=== PATIENT | male | born 1995 | race Caucasian/White ===

== ENCOUNTER 2020-09-19 13:23 | Inpatient (IN) | payer MEDICARE ==
[~2020-09-19] VITALS: Ht 177.8 cm; Wt 99.1 kg
--- NOTE | 2020-09-19 14:00 | NUR ---
DEVELOPMENTAL SERVICES WORKER ATTEMPTED TO DRAW BLOOD AND RN ATTEMPTED TO START IV WITHOUT SUCCESS. PATIENT IS VERY UNCOOPERATIVE AND BECAME COMBATIVE DESPITE EXPLANATIONS AND HOLDING HELP. SARS ANTIGEN SWAB OBTAINED FROM ONLY LEFT NARE DUE TO COMBATIVENESS. SPENCER CARDONA, NOTIFIED. ORDERS CANCELLED.
--- NOTE | 2020-09-19 14:30 | NUR ---
PATIENT HAS 02 OFF. SPO2 AT 88%. O2 REPLACED AND EXPLAINED TO PATIENT.
--- NOTE | 2020-09-19 14:45 | NUR ---
COVID ANTIGEN POSITIVE. GRANDFATHER/GUARDIAN INFORMED AND REMOVED FROM ROOM.
[2020-09-19 15:17] LABS: SARS-CoV-2 ANTIGEN POSITIVE- SARS-COV-2 (NEGATIVE)
--- NOTE | 2020-09-19 15:30 | NUR ---
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 URINAL GIVEN. PATIENT AGAIN HAS REMOVED O2 CANNULA AND PULLED SPO2 SENSOR OFF FINGER. REMINDED TO KEEP BOTH ON. SPO2 88 WITHOUT O2.
[2020-09-19 21:43] VITALS: BP 131/84
[2020-09-19 23:56] LABS: BASOPHILS 0.8 % (0-2); EOSINOPHILS 0.1 % (0-7); HEMATOCRIT 46.4 % (42.0-54.0); HEMOGLOBIN 16.3 g/dL (13.5-17.5); LYMPHOCYTES 17.1 % (15-50); MCH 29.8 pg (26.0-34.0); MCHC 35.1 g/dL (31.0-37.0); MCV 84.9 fL (80.0-100.0); MEAN PLATELET VOLUME 9.5 fL (7.4-10.4); MONOCYTES 17.8 % (2-11); NEUTROPHILS 64.2 % (40-80); PLATELET COUNT 163 10x3/uL (130-400); RBC 5.46 10x6/uL (4.20-6.10); RDW 13.5 % (11.5-14.5); WBC 4.8 10x3/uL (4.8-10.8)
[2020-09-20] VITALS (10 sets, daily range): BP systolic 100–136; BP diastolic 57–86; BMI 34.5
[2020-09-20 00:25] LABS: APTT 30.7 SECONDS (22.8-39.4); INR 1.15 (0.85-1.17); PROTIME 13.6 SECONDS (11.6-15.0)
[2020-09-20 00:26] LABS: D-DIMER-QUANTITATIVE 0.88 ug/mLFEU (0.20-0.54)
--- NOTE | 2020-09-20 00:51 | NUR ---
PT RECIEVED VIA WHEELCHAIR WITH NURSE FROM ER ON ROOM AIR AT 0040 , PT WALKED TO ICU BED AND WAS PLACED ON MONITOR. O2 WAS 88% PLACED ON 2LT NC. DAD AT BEDSIDE. BED IN LOWEST POSITION, SIDERAIL UP X2, CALL LIGHT IN REACH, BED ALARM ON. WILL CONTIONUE TO MONITOR
[2020-09-20 01:03] LABS: ALBUMIN 3.2 g/dL (3.4-5.0); ALKALINE PHOSPHATASE 34 U/L (30-120); ALT (SGPT) 43 U/L (10-68); CALC OSMOLALITY 274 mosm/kg (275-300); CALCIUM 8.2 mg/dL (8.5-10.1); CHLORIDE - SERUM 98 mmol/L (98-107); CKMB 0.8 U/L (0.0-3.6); GLUCOSE 119 mg/dL (74-106); MAGNESIUM - SERUM 2.4 mg/dL (1.8-2.4); POTASSIUM - SERUM 5.2 mmol/L (3.5-5.1); PRO BNP 40 pg/mL (0-125); SODIUM 137 mmol/L (136-145); UREA NITROGEN 13 mg/dL (7-18); eGFR NON AFRICAN AMERICAN > 90 mL/min (90-120)
[2020-09-20 01:06] LABS: CREATINE KINASE 825 UL (21-232); TROPONIN-I < 0.017 ng/mL (0.000-0.060)
[2020-09-20 06:24] LABS: HEMATOCRIT 47.2 % (42.0-54.0); HEMOGLOBIN 16.1 g/dL (13.5-17.5); MCH 29.3 pg (26.0-34.0); MCV 86.2 fL (80.0-100.0); MEAN PLATELET VOLUME 9.7 fL (7.4-10.4); PLATELET COUNT 167 10x3/uL (130-400); RBC 5.48 10x6/uL (4.20-6.10); RDW 13.6 % (11.5-14.5); WBC 3.7 10x3/uL (4.8-10.8)
[2020-09-20 06:28] LABS: ALBUMIN 3.1 g/dL (3.4-5.0); ALKALINE PHOSPHATASE 35 U/L (30-120); ALT (SGPT) 37 U/L (10-68); BILIRUBIN - TOTAL 0.49 mg/dL (0.2-1.3); CALC OSMOLALITY 274 mosm/kg (275-300); CALCIUM 8.6 mg/dL (8.5-10.1); CHLORIDE - SERUM 98 mmol/L (98-107); GLUCOSE 124 mg/dL (74-106); MAGNESIUM - SERUM 2.4 mg/dL (1.8-2.4); PROTEIN - SERUM 7.2 g/dL (6.4-8.2); SODIUM 137 mmol/L (136-145); UREA NITROGEN 12 mg/dL (7-18); eGFR NON AFRICAN AMERICAN > 90 mL/min (90-120)
[2020-09-20 06:30] LABS: POTASSIUM - SERUM 3.6 mmol/L (3.5-5.1)
--- NOTE | 2020-09-20 07:10 | NUR ---
REPORT RECEIED FROM OFF GOING NURSE AND PATIENT CARE ASSUMED. PATIENT SITTING UP IN BED WATCHING CARTOONS. PATIENT HAS PULLED OUT IV, REMOVED BP CUFF, NC,AND TELEMETRY WIRES. EXPLAINED THE IMPORTANCE OF MEDICAL MONITORING TO PATIENTS LEVEL OF UNDERSTANDING AND PATIENT AGREED TO REPLACE ALL EQUIPMENT BUT REFUSED IV. PATIENT STATES 'NO NEEDLES." ASKED PATIENT TO URINATE IN URINAL PATIENT STATES I DONT NEEDS TO GO. PATIENT DAD AT BS. EXPLAINED THE IMPORTANCE OF MEDICAL EQUIPMENT AND ASKED FOR MONITORING BY DAD AND AGREED. PATIENT IS COVID + IN ISOLATION. VSS. AFEBRILE. WILL CONTINUE TO MONITOR. SR UP X 2 BED IN LOW POSITION AND CALL LIGHT IN REACH.
[2020-09-20 08:14] LABS: LYMPHOCYTES 25 % (15-50); MONOCYTES 10 % (2-11); NEUTROPHILS 55 % (40-80); PLATELET ESTIMATE NORMAL
--- NOTE | 2020-09-20 09:45 | NUR ---
PATIENT HAS REMOVED ALL MEDICAL EQUIPMENT AGAIN. DAD IS NO LONGER IN ROOM. RE APPLIED ALL MEDICAL EQUIPMENT. PATIENT REFUSES IV AND TO WEAR NC. SPENT SEVERAL MINUTES REORIENTATING PATIENT TO WEAR NC , TELEMETRY BP CUFF AND O2 MONITOR. PATIENT AGREED TO WEAR. THIS NURSE LEAVING ROOM, PATIENT REMOVED ALL EQUIPMENT AGAIN. ATTEMPTED TO RECONNECT AND PATIENT BECAME AGITATED AND REFUSED. REPORTED TO CHARGE NURSE RJ AND DR KAMARA. SR UP X 2 BED IN LOW POSITION AND CALL LIGHT IN REACH.
--- NOTE | 2020-09-20 10:47 | NUR ---
PATIENT HAD BM AND USED PAPER TOWELS TO CLEAN AND HAS BM COVERED PAPER TOWELS ALL IN FLOOR. PATIENT, ROOM CLEANED. PATIENT CONTINUES TO REFUSE TO USE EQUIPMENT.
--- NOTE | 2020-09-20 12:10 | NUR ---
ENGTERED PATIENTS ROOM TO GIVE LUNCH TRAY. SPENT SEVERAL MINUTES ATTEMPTING TO RE APPLY BP CUFF, O2 CANNULA, SCD'S AND RE START IV. PATIENT REFUSES. SR UP X 2 BED IN LOW POSITION AND CALL LIGHT IN REACH.
--- NOTE | 2020-09-20 15:00 | NUR ---
PATIENT CONTINUES TO REFUSE TO WEAR BP CUFF, O2 SAT AND NC. PATIENT HAS HAD BM IN BE AND ON FLOOR WELL URINATED IN BED AND ON FLOOR. SPENT SEVERAL MINUTES WITH PATIENT ATTEMPTING TO APPLY ABOVE MENTIONED MEDICAL EQUIPMENT PATIENT REFUSES. CLEANED PATIENT, CHANGED GOWN AND COMPLETE BED CHANGE. PATIENT IS TEARFUL STATING THAT HE FEELS FINE AND WANTS TO GO HOME. ATTEMPTED TO CALL HIS FATHER. ALL NUMBERS ON CHART ARE DISCONNECTED. FATHER HAS NOT CALLED INTO ICU SINCE LEAVING THIS AM AT 1000. REPORTED SITUATION TO DR KAMARA, CHARGE NURSE RJ AND SINGLE RESOURCE BOSS. WILL CONTINUE TO MONITOR. SR UP X 2 BED IN LOW POSITON AND CALL LIGHT IN REACH.
--- NOTE | 2020-09-20 16:20 | NUR ---
GOT ICE CREAM FOR PATIENT THAT IS STILL TEARFUL. PATIENT IS OTHERWISE CAM SITTNG UP IN BED. WILL CONTINUE TO MONITOR. SR UP X 2 BED IN LOW POSITION AND CALL LIGHT IN REACH.
[2020-09-20 17:41] LABS: BILIRUBIN NEGATIVE (NEGATIVE); KETONE MODERATE mg/dL (NEGATIVE); NITRITE NEGATIVE (NEGATIVE); UROBILINOGEN NORMAL mg/dL (< 2)
[2020-09-20 17:45] LABS: UDS - AMPHET NEGATIVE QUAL (NEGATIVE); UDS - BARB NEGATIVE QUAL (NEGATIVE); UDS - BENZO NEGATIVE QUAL (NEGATIVE); UDS - COCAINE NEGATIVE QUAL (NEGATIVE); UDS - OPIATE NEGATIVE QUAL (NEGATIVE); UDS - PCP NEGATIVE QUAL (NEGATIVE); UDS - THC NEGATIVE QUAL (NEGATIVE)
--- NOTE | 2020-09-20 18:00 | NUR ---
PATIENT LAYING IN BED ON LEFT SIDE WITH EYES CLOSED AND BREATHING EVENLY. WILL CONTINUE TO MONITOR. SR UP X 2 BED IN LOW POSITION AND CALL LIGHT IN REACH.
--- NOTE | 2020-09-20 21:00 | NUR ---
PT'S DAD CALLED TO CHECK ON HIM, STATED HE WOULD COME IN THE AM TO CHECK ON HIM.
[2020-09-21] VITALS (17 sets, daily range): BP systolic 109–143; BP diastolic 64–94; BMI 32.7
--- NOTE | 2020-09-21 02:33 | NUR ---
I have reviewed this patient and I concur with the Shift Assessment completed by the Licensed Practical Nurse today this shift.
[2020-09-21 05:26] LABS: BASOPHILS 0.3 % (0-2); EOSINOPHILS 0 % (0-7); HEMATOCRIT 43.5 % (42.0-54.0); HEMOGLOBIN 15.3 g/dL (13.5-17.5); LYMPHOCYTES 22.9 % (15-50); MCHC 35.2 g/dL (31.0-37.0); MCV 85.3 fL (80.0-100.0); MEAN PLATELET VOLUME 9.2 fL (7.4-10.4); MONOCYTES 21.7 % (2-11); NEUTROPHILS 55.1 % (40-80); RDW 13.3 % (11.5-14.5)
[2020-09-21 05:34] LABS: PLATELET COUNT 217 10x3/uL (130-400)
[2020-09-21 05:44] LABS: ALBUMIN 2.9 g/dL (3.4-5.0); ALKALINE PHOSPHATASE 35 U/L (30-120); ALT (SGPT) 42 U/L (10-68); BILIRUBIN - TOTAL 0.41 mg/dL (0.2-1.3); CALC OSMOLALITY 281 mosm/kg (275-300); CALCIUM 8.4 mg/dL (8.5-10.1); CARBON DIOXIDE 31.7 mmol/L (21.0-32.0); CHLORIDE - SERUM 102 mmol/L (98-107); GLUCOSE 136 mg/dL (74-106); MAGNESIUM - SERUM 2.1 mg/dL (1.8-2.4); POTASSIUM - SERUM 3.4 mmol/L (3.5-5.1); PROTEIN - SERUM 6.6 g/dL (6.4-8.2); SODIUM 141 mmol/L (136-145); UREA NITROGEN 11 mg/dL (7-18); eGFR NON AFRICAN AMERICAN > 90 mL/min (90-120)
--- NOTE | 2020-09-21 07:00 | NUR ---
RECEIVED BEDSIDE REPORT ON PATIENT AND ASSUMED CARE. PATIENT RESTING QUIETLY, WITH EYES CLOSED, EASILY AROUSED BY VOICE. NOT WEARING O2 OR MONITORING EQUIPMENT. SPO2 - 84% ON RA, PLACED NC AND INSTRUCTED ON IMPORTANCE OF WEARING IT, AT 3 LPM WITH SPO2 - 93%, CM PLACED SHOWS HR 84, NSR, RR - 24, BBS CLEAR BUT DIMINIHSED. PATIENT REFUSED TO WEAR SCD'S AND REFUSED TO USE IS. IV 20 GA TO RIGHT HAND, PATENT, INFUSING NS AT 10 ML/HR. HEAD TO TOE ASSESSMENT COMPELTED. PATIENT STATES HE WILL WEAR MONITORING EQUIPMENT AND KEEP HIS O2 ON.
--- NOTE | 2020-09-21 08:57 | NUR ---
PATIENT DID NOT EAT BREAKFAST TRAY, STATES DOES NOT EAT BREAKFAST BUT IS LOOKING FORWARD TO LUNCH. MORNING MEDS PER MAR, VSS.
--- NOTE | 2020-09-21 09:41 | NUR ---
DR. KAMARA AT ROOM UPDATED AND EXAMINES PATIENT.
--- NOTE | 2020-09-21 11:01 | NUR ---
REASSESSMENT COMPLETED. VSS. PATIENT WEARING MONITORING EQUIPMENT AND O2. COOPERATING WITH CARE. NO NEEDS AT THIS TIME.
--- NOTE | 2020-09-21 11:47 | NUR ---
SPOKE TO PATIENTS FATHER, UPDATED AND QUESTIONS ANSWERED. STATES NEW CELL PHONE NUMBER IS [phone]. PHONE NUMBER UPDATED IN CONTACTS.
--- NOTE | 2020-09-21 14:23 | NUR ---
DR. LYNN AT ROOM UPDATED AND EXAMINES PATIENT.
--- NOTE | 2020-09-21 14:53 | NUR ---
REASSESSMENT COMPLETED. PATIENT SITTING UP IN BED WATCHING TV. NO NEEDS AT THIS TIME.
[2020-09-22] VITALS (20 sets, daily range): BP systolic 102–153; BP diastolic 48–139
--- NOTE | 2020-09-22 00:56 | NUR ---
PT PULLED OUT IV AROUND 0. REFUSED TO HAVE ANOTHER IV STARTED
--- NOTE | 2020-09-22 03:25 | NUR ---
I have reviewed this patient and I concur with the Shift Assessment completed by the Licensed Practical Nurse today this shift.
[2020-09-22 05:23] LABS: BASOPHILS 0.4 % (0-2); EOSINOPHILS 0 % (0-7); HEMATOCRIT 46.5 % (42.0-54.0); HEMOGLOBIN 16.3 g/dL (13.5-17.5); LYMPHOCYTES 30.1 % (15-50); MCH 29.8 pg (26.0-34.0); MCV 85.3 fL (80.0-100.0); MONOCYTES 21.3 % (2-11); NEUTROPHILS 48.2 % (40-80); RBC 5.45 10x6/uL (4.20-6.10); RDW 13.6 % (11.5-14.5); WBC 5.8 10x3/uL (4.8-10.8)
[2020-09-22 05:47] LABS: ALBUMIN 3.2 g/dL (3.4-5.0); ALKALINE PHOSPHATASE 34 U/L (30-120); ALT (SGPT) 43 U/L (10-68); BILIRUBIN - TOTAL 0.58 mg/dL (0.2-1.3); CALC OSMOLALITY 285 mosm/kg (275-300); CALCIUM 8.8 mg/dL (8.5-10.1); CARBON DIOXIDE 30.6 mmol/L (21.0-32.0); CHLORIDE - SERUM 104 mmol/L (98-107); GLUCOSE 131 mg/dL (74-106); MAGNESIUM - SERUM 2.2 mg/dL (1.8-2.4); POTASSIUM - SERUM 3.1 mmol/L (3.5-5.1); PROTEIN - SERUM 7.2 g/dL (6.4-8.2); SODIUM 143 mmol/L (136-145); UREA NITROGEN 11 mg/dL (7-18); eGFR NON AFRICAN AMERICAN > 90 mL/min (90-120)
[2020-09-22 05:48] LABS: PLATELET COUNT 275 10x3/uL (130-400)
--- NOTE | 2020-09-22 07:02 | NUR ---
RECEIVED REPORT FROM MICHEAL NORIEGA RN. PER REPORT, HE PULLED OUT HIS IV LAST NIGHT, REFUSED TO HAVE AN IV RESTARTED SO DID NOT RECEIVE HIS ABX. REFUSING HIS K+, EVEN THOUGH HIS K+ IS 3.1. REFUSING TO BE ON THE MONITOR AND REFUSING HIS OXYGEN. PER REPORT, HIS GRANDFATHER WAS APPROVED TO STAY IN THE ROOM TO REINFORCE PT TO KEEP HIS OXYGEN ON, BUT HIS GRANDFATHER STAYED ONLY ONE NIGHT AND WAS ASLEEP THE WHOLE TIME AND DID NOT ENCOURAGE HIS GRANDSON TO KEEP HIS OXYGEN ON OR BEING COMPLIANT.
--- NOTE | 2020-09-22 07:04 | NUR ---
PT REFUSED MEDS, PULLED OUT IV AND REFUSED TO HAVE ANOTHER ONE STARTED. REFUSED TO WEAR OXYGEN, REFUSED TO BE HOOKED UP TO MONITOR. BED IN LOW POSITION SIDERAIL UP X2 CALL LIGHT IN REACH
--- NOTE | 2020-09-22 08:10 | NUR ---
UPON ENTRY INTO ROOM, O2 AND MONITORS WERE FOUND OFF. PLACED O2 BACK ON AND MONITORS BACK ON. O2 94%, OTHER VSS. ATTEMPTED TO PLACE IV, BUT HE WOULD NOT LET ME NEAR HIS ARM AND STATES, "I DON'T WANT TO GET POKED BY A NEEDLE." REINFORCED HE NEEDS HIS ABX, BUT REFUSES IV.
--- NOTE | 2020-09-22 09:03 | NUR ---
ABLE TO TAKE HIS MEDS ONE AT A TIME W/ SIP OF WATER. ABLE TO REPLETE HIS K+ THIS AM, HE HAD REFUSED IT FOR MICHEAL LAST NIGHT. CONSISTENTLY FINDING HIM WITH HIS O2 OFF, HOWEVER, SATS UP TO 95% WITH LOWEST 91%.
--- NOTE | 2020-09-22 10:00 | NUR ---
DR. ASAD DENISE. REPORTED IV OUT AND HE SWITCHES ABX TO PO. REPORTED SATS 91-95 ON RA AND HE OKS THIS.
--- NOTE | 2020-09-22 12:03 | NUR ---
THOUGHT ALLYSSA MARTINEZ WAS HIS GRANDFATHER, BUT APPARENTLY IS HIS FATHER. PT WAS ASKING ME IF HIS DAD COULD COME UP HERE BECAUSE HE MISSED HIM AND WAS VISIBALLY UPSET. CALLED MR. MARTINEZ, BUT NUMBER INCORRECT. PT WAS ABLE TO GIVE ME HIS SISTER'S NUMBER, AND WAS ABLE TO GET IN TOUCH W/ MR. MARTINEZ. ASKED HIM TO COME UP AND HERE AND UPDATE GIVEN.
[2020-09-23] VITALS (12 sets, daily range): BP systolic 103–160; BP diastolic 55–100; Ht 177.8 cm; Wt 99.1 kg
--- NOTE | 2020-09-23 04:15 | NUR ---
PT REFUSING LABS AT THIS TIME. STATED TO PHLEBO, "CHECK BACK AFTER BREAKFAST, IT'S STILL DARK OUTSIDE." ATTEMPTED TO EDUCATE ON IMPORTANCE OF MONITORING BLOOD WORK, PT UNRECEPTIVE, CONTINUES TO INSIST ON PHLEBO ATTEMPTING AFTER BREAKFAST.
[2020-09-23 08:34] LABS: ALBUMIN 3.3 g/dL (3.4-5.0); ALKALINE PHOSPHATASE 35 U/L (30-120); CALC OSMOLALITY 289 mosm/kg (275-300); CARBON DIOXIDE 31.4 mmol/L (21.0-32.0); CHLORIDE - SERUM 108 mmol/L (98-107); CREATININE - SERUM 1.1 mg/dL (0.6-1.3); GLUCOSE 94 mg/dL (74-106); POTASSIUM - SERUM 3.3 mmol/L (3.5-5.1); PROTEIN - SERUM 7.2 g/dL (6.4-8.2); SODIUM 146 mmol/L (136-145); UREA NITROGEN 11 mg/dL (7-18); eGFR NON AFRICAN AMERICAN 86 mL/min (90-120)
[2020-09-23 08:35] LABS: ALT (SGPT) 59 U/L (10-68)
[2020-09-23 08:36] LABS: HEMATOCRIT 45.7 % (42.0-54.0); HEMOGLOBIN 15.8 g/dL (13.5-17.5); MCH 29.6 pg (26.0-34.0); MCHC 34.6 g/dL (31.0-37.0); MCV 85.4 fL (80.0-100.0); MEAN PLATELET VOLUME 8.1 fL (7.4-10.4); PLATELET COUNT 329 10x3/uL (130-400); RBC 5.35 10x6/uL (4.20-6.10); RDW 13.6 % (11.5-14.5)
[2020-09-23 08:41] LABS: WBC 8.5 10x3/uL (4.8-10.8)
[2020-09-23 09:07] LABS: EOSINOPHILS 1 % (0-7); LYMPHOCYTES 39 % (15-50); MONOCYTES 2 % (2-11); NEUTROPHILS 57 % (40-80); PLATELET ESTIMATE NORMAL
--- NOTE | 2020-09-23 09:30 | NUR ---
DR. ASAD DENISE. ORDERS RECEIVED.
--- NOTE | 2020-09-23 13:42 | NUR ---
REPORT GIVEN TO
--- NOTE | 2020-09-23 13:51 | NUR ---
GAVE ROOM NUMBER TO FAMILY.
--- NOTE | 2020-09-23 15:47 | NUR ---
PATIENT ARRIVED TO ROOM VIA W/C FROM ICU. FAMILY IN ROOM WAITING FOR HIM. PATIENT HAD TO GET A BLOOD DRAW, PATIENT IS AFRAID OF NEEDLES. HAD TO CALM HIM DOWN FIRST. PATIENT IS 25 YOU WITH A INTELLEGENCE LEVEL OF A 4 YEAR OLD. BUT IS ABLE TO MAKE NEEDS KNOWN. IS ABLE TO COMMUNICATE WITHOUT ISSUE. RESP EVEN AND UNLABORED ON ROOM AIR. LUNG SOUNDS WHEEZING TO LOWER LOBE. SHORTNESS OF BREATH. HEART SOUNDS REGULAR RATE AND RYTHYM. TELE WHEN IN ICU MAINTAINED SINUS RYTHYM, SINUS TACH 90. NO AREAS OF SKIN IRRITATION OR SORES. PATIENT TAKES MEDS BY MOUTH AND IS ON A REGULAR DIET.
--- NOTE | 2020-09-23 22:08 | NUR ---
ASSESSMENT COMPLETED AT 1950 HRS. PT DENIED ANY DISCOMFORT. PT ALERT AND ORIENTED . LUNGS DIMINISHED IN BASES BILAT. KNUTSON. PALPABLE PERIPHERAL PULSES. PT UP IN SHOWER AT 2114 HRS. NEW GOWN PLACED ON PT. PM MEDS GIVEN. PT CURRENTLY RESTING WITH EYES CLOSED. RESP EVEN AND REGULAR. SR UP X1, CALL LIGHT WITHIN REACH.
--- NOTE | 2020-09-24 00:06 | NUR ---
PT RESTING WITH EYES CLOSED IN PRONE POSITION. RESP EVEN AND REGULAR. SR UP X1, CALL LIGHT WITHIN REACH.
--- NOTE | 2020-09-24 02:24 | NUR ---
PT AWAKE; DENIES ANY DISCOMFORT. CALL LIGHT WITHIN REACH.
--- NOTE | 2020-09-24 03:51 | NUR ---
PT RESTING WITH EYES CLOSED. RESP EVEN AND REGULAR. CALL LIGHT WITHIN REACH.
[2020-09-24 04:00] VITALS: BP 134/83
--- NOTE | 2020-09-24 06:10 | NUR ---
VSS. NEEDS MET; WILL CONTINUE TO MONITOR.
[2020-09-24 07:11] LABS: BASOPHILS 0.7 % (0-2); EOSINOPHILS 0.3 % (0-7); HEMATOCRIT 45.6 % (42.0-54.0); HEMOGLOBIN 15.5 g/dL (13.5-17.5); LYMPHOCYTES 31.2 % (15-50); MCH 29.7 pg (26.0-34.0); MCV 87.2 fL (80.0-100.0); MEAN PLATELET VOLUME 8.1 fL (7.4-10.4); MONOCYTES 16.3 % (2-11); NEUTROPHILS 51.5 % (40-80); PLATELET COUNT 370 10x3/uL (130-400); RBC 5.23 10x6/uL (4.20-6.10); RDW 13.6 % (11.5-14.5); WBC 8.5 10x3/uL (4.8-10.8)
--- NOTE | 2020-09-24 07:11 | NUR ---
RECEIVE SHIFT REPORT. RESTING IN BED WATCHING TV. IN COVID ISOLATION. WILL CONTINUE POC AND SAFETY PRECAUTIONS.
[2020-09-24 07:12] LABS: ALBUMIN 3.4 g/dL (3.4-5.0); ALKALINE PHOSPHATASE 35 U/L (30-120); BILIRUBIN - TOTAL 0.85 mg/dL (0.2-1.3); CALC OSMOLALITY 286 mosm/kg (275-300); CALCIUM 9.1 mg/dL (8.5-10.1); CHLORIDE - SERUM 105 mmol/L (98-107); CREATININE - SERUM 1.1 mg/dL (0.6-1.3); GLUCOSE 95 mg/dL (74-106); MAGNESIUM - SERUM 2.1 mg/dL (1.8-2.4); PROTEIN - SERUM 7.1 g/dL (6.4-8.2); SODIUM 144 mmol/L (136-145); UREA NITROGEN 13 mg/dL (7-18); eGFR NON AFRICAN AMERICAN 86 mL/min (90-120)
[2020-09-24 07:13] LABS: ALT (SGPT) 78 U/L (10-68); POTASSIUM - SERUM 3.3 mmol/L (3.5-5.1)
[2020-09-24] MEDS ORDERED: VENTOLIN HFA [SP8 GM INH (09:04)
[2020-09-24] MEDS ORDERED: ZITHROMAX250 MG PO (09:05)
[2020-09-24] MEDS ORDERED: DULERA 100 MCG8.8 GM INH (09:05)
[2020-09-24] MEDS ORDERED: MUCINEX600 MG PO (09:05)
[2020-09-24] MEDS ORDERED: TESSALON PERLE100 MG PO (09:05)
[2020-09-24] MEDS ORDERED: Zinc SULFATE PO (09:06)
[2020-09-24] MEDS ORDERED: MELATONIN 3 MG1 TAB PO (09:06)
[2020-09-24] MEDS ORDERED: VITAMIN D325 MC1 PO (09:06)
[2020-09-24] MEDS ORDERED: VITAMIN B-1100 M1 PO (09:06)
[2020-09-24] MEDS ORDERED: DECADRON4 MG PO (09:06)
[2020-09-24] MEDS ORDERED: VITAMIN C PO (09:06)
--- NOTE | 2020-09-24 12:05 | NUR ---
TAKEN DOWN TO ED ENTRANCE. DISCHARGE INSTRUCTIONS EXPLAINED TO FATHER.
--- NOTE | 2020-09-24 18:58 | MORECARE ---
CASE MANAGEMENT DISCHARGE SUMMARY PATIENT: LEISA GARCIA UNIT: [id number] ADM DATE: 09/19/20 AGE: 25 : 94 SEX: M ROOM/BED: D.2138 AUTHOR: MAYA JEFFERSON PHYSICIAN: REFERRING PHYSICIAN: CATHY LYNN MD DATE OF SERVICE: 09/24/20 Case Management Discharge Planning Summary COMMENTS ENTERED DATE: 09/24/20 18:50 CT COMMENT TYPE: Discharge Planning REVIEWER: Shaun Esparza Telephone conversation with patient's father, Andriy Garcia, at 1023 on 24 September 2020 to complete DC plan and needs. Patient has cognitive deficits and lives with his parents dependent for ADLs. Mr. Garcia stated that the patient has developed significant behavioral issues that need addressing. Mr. Garcia stated that his son has developed a tendency to soil himself. Mr. Garcia stated that he has no needs other than needing some type of behavioral modification training for his son. CM encouraged Mr. Garcia to reach out to his son's developmental care team as well as his son's primary care team, Lisa Wells CNP. In addition, CM gave Mr. Garcia the contact number from the Division of Developmental Disabilities listed on their website ([phone]). Mr. Garcia expressed deep concern at his son's behavior that often becomes violent. Mr. Garcia expressed his feelings stating that he doesn't feel that anyone is trying to help. Again CM encouraged Mr. Garcia to reach out to his primary care team and developmental care team for his son. Mr. Garcia stated that he would try to call the number tomorrow on Friday. Mr. Garcia declined HHS. Mr. Garcia voiced no other needs at this time and is satisfied with DC plan. Transportation provider at discharge will be with Mr. Garcia. The patient's pharmacy is [facility] on [address]. DC IMM telephonically explained, signed, and placed in chart per current Isolation protocols. CM will continue to follow and will assist as needed with dc plans/needs DCP REVIEW SUMMARY ANTICIPATED D/C DATE: 09/24/2020 EXPECTED LOS : 5 CASE STATUS: DCP Initiated INITIAL REVIEW: 09/19/2020 INITIAL REVIEWER: Shaun Esparza FINAL DISCHARGE DISPOSITION: : FINAL REVIEWER: FINAL REVIEW DATE: DCP Focus Questions & Answers DCP Evaluation QUESTION: ANSWER Family / Caregiver's ability to cope with chronic illness: : a. Adequate (ability to meet patient's medical needs, ensures patient attends medical appts.) Patient gives permission to discuss discharge plans with: (name, relationship and number) : fatherAndriy, Patient's ability to cope with chronic illness : d. No chronic illness Patient's current cognitive status: : Alert Patient and/or caregiver agree upon recommended discharge plan? : Yes Physical Status: : Partial care dependence Family / Caregiver's ability to cope with chronic illness: : a. Adequate (ability to meet patient's medical needs, ensures patient attends medical appts.) Functional screen assessment: : Basic needs can adequately be met by self Does the patient have the ability to pay for or attain post discharge needs / services? : Yes Partial Dependence, assistance required for: : Ambulation / Mobility Partial Dependence, assistance required for: : Bathing Partial Dependence, assistance required for: : Dressing Partial Dependence, assistance required for: : Eating Living Arrangements: : Home with Parents Is there a likelihood that the patient will require additional services to return to the preadmission environment? : Yes Equipment needed for post hospitalization: : None Patient with capacity for self-care or can be cared for in same environment as prior to hospitalization? : Yes Physical environment modification needed / anticipated for discharge: : No Medication Management: : Patient states can afford medications Medication Management: : Patient states can read and understand medication labels Pharmacy name(s): : [facility] on [address] Does Patient have transportation to get home and to follow-up medical appointments when discharged from the hospital? : Yes Would patient like to participate in any Care Coordination programs (if applicable): : Not applicable Does the patient have electricity at home? : Yes Does the patient have running water in their house? : Yes Equipment in use: : None Mental health screen: : No mental health history DCP Re-evaluation QUESTION: ANSWER Would patient like to participate in any Care Coordination programs (if applicable): : Not applicable PATIENT: LEISA GARCIA ENCOUNTER: [id number] MEDICAL RECORD#: [id number] ADMISSION DATE: 09/19/2020 DISCHARGE DATE: 09/24/2020 ATTENDING MD: JOSE ANTONIO AMADO : AGE: 25 MARITAL STATUS: S DC PLAN ID: [id number] FACILITY: [facility] PRINTED ON: 09/24/20 18:57 CT All edits/amendments must be made on the electronic document DICTATION DATE: 09/24/201856 MONKEY KEEPER: FELTON 09/24/201856 RPT#: [id number] DC DATE:09/24/20 STATUS: DIS IN [facility] [address] [place] [address] END OF REPORT
--- NOTE | 2020-09-25 16:40 | MORECARE ---
CASE MANAGEMENT DISCHARGE SUMMARY PATIENT: LEISA GARCIA UNIT: [id number] ADM DATE: 09/19/20 AGE: 25 : 89 SEX: M ROOM/BED: D.2138 AUTHOR: MAYA JEFFERSON PHYSICIAN: REFERRING PHYSICIAN: CATHY LYNN MD DATE OF SERVICE: 09/25/20 Case Management Discharge Planning Summary COMMENTS ENTERED DATE: 09/24/20 18:50 CT COMMENT TYPE: Discharge Planning REVIEWER: Shaun Esparza Telephone conversation with patient's father, Andriy Garcia, at 1023 on 24 September 2020 to complete DC plan and needs. Patient has cognitive deficits and lives with his parents dependent for ADLs. Mr. Garcia stated that the patient has developed significant behavioral issues that need addressing. Mr. Garcia stated that his son has developed a tendency to soil himself. Mr. Garcia stated that he has no needs other than needing some type of behavioral modification training for his son. CM encouraged Mr. Garcia to reach out to his son's developmental care team as well as his son's primary care team, Lisa Wells CNP. In addition, CM gave Mr. Garcia the contact number from the Division of Developmental Disabilities listed on their website ([phone]). Mr. Garcia expressed deep concern at his son's behavior that often becomes violent. Mr. Garcia expressed his feelings stating that he doesn't feel that anyone is trying to help. Again CM encouraged Mr. Garcia to reach out to his primary care team and developmental care team for his son. Mr. Garcia stated that he would try to call the number tomorrow on Friday. Mr. Garcia declined HHS. Mr. Garcia voiced no other needs at this time and is satisfied with DC plan. Transportation provider at discharge will be with Mr. Garcia. The patient's pharmacy is [facility] on . DC IMM telephonically explained, signed, and placed in chart per current Isolation protocols. CM will continue to follow and will assist as needed with dc plans/needs DCP REVIEW SUMMARY ANTICIPATED D/C DATE: 09/24/2020 EXPECTED LOS : 5 CASE STATUS: DCP Initiated INITIAL REVIEW: 09/19/2020 INITIAL REVIEWER: Shaun Esparza FINAL DISCHARGE DISPOSITION: : FINAL REVIEWER: FINAL REVIEW DATE: DCP Focus Questions & Answers DCP Evaluation QUESTION: ANSWER Patient and/or caregiver agree upon recommended discharge plan? : Yes Family / Caregiver's ability to cope with chronic illness: : a. Adequate (ability to meet patient's medical needs, ensures patient attends medical appts.) Patient's current cognitive status: : Alert Patient's ability to cope with chronic illness : d. No chronic illness Patient gives permission to discuss discharge plans with: (name, relationship and number) : fatherAndriy, Does the patient have the ability to pay for or attain post discharge needs / services? : Yes Functional screen assessment: : Basic needs can adequately be met by self Family / Caregiver's ability to cope with chronic illness: : a. Adequate (ability to meet patient's medical needs, ensures patient attends medical appts.) Physical Status: : Partial care dependence Equipment needed for post hospitalization: : None Is there a likelihood that the patient will require additional services to return to the preadmission environment? : Yes Living Arrangements: : Home with Parents Partial Dependence, assistance required for: : Eating Partial Dependence, assistance required for: : Dressing Partial Dependence, assistance required for: : Bathing Partial Dependence, assistance required for: : Ambulation / Mobility Patient with capacity for self-care or can be cared for in same environment as prior to hospitalization? : Yes Physical environment modification needed / anticipated for discharge: : No Medication Management: : Patient states can read and understand medication labels Medication Management: : Patient states can afford medications [facility] [address] Does Patient have transportation to get home and to follow-up medical appointments when discharged from the hospital? : Yes Would patient like to participate in any Care Coordination programs (if applicable): : Not applicable Does the patient have electricity at home? : Yes Does the patient have running water in their house? : Yes Equipment in use: : None Mental health screen: : No mental health history DCP Re-evaluation QUESTION: ANSWER Would patient like to participate in any Care Coordination programs (if applicable): : Not applicable PATIENT: LEISA GARCIA ENCOUNTER: [id number] MEDICAL RECORD#: [id number] ADMISSION DATE: 09/19/2020 DISCHARGE DATE: 09/24/2020 ATTENDING MD: JOSE ANTONIO AMADO : AGE: 25 MARITAL STATUS: S DC PLAN ID: [id number] FACILITY: [facility] PRINTED ON: 09/25/20 16:40 CT All edits/amendments must be made on the electronic document DICTATION DATE: 09/25/20 1640 KNITTING MACHINE FIXER: FELTON 09/25/20 1640 RPT#: [id number] DC DATE:09/24/20 STATUS: DIS IN [facility] [address] [place] [address] END OF REPORT
== END 2020-09-24 12:05 | disposition home or self-care (01) | DRG 177 ==
LOC: D.ER 13:23 → D.M2 15:49 → D.ICU 15:49 → D.M2 09-23 15:30
PROVIDERS: Student in an Organized Health Care Education/Training Program; ADMIT Emergency Medicine; ATTEND Emergency Medicine
DX: U07.1 COVID-19 (principal); J96.01 Acute respiratory failure with hypoxia; J12.82 Pneumonia due to coronavirus disease 2019; I10 Essential (primary) hypertension; E78.5 Hyperlipidemia, unspecified; F32.9 Major depressive disorder, single episode, unspecified; K59.00 Constipation, unspecified; R62.50 Unspecified lack of expected normal physiological development in childhood; Z91.19 Patient's noncompliance with other medical treatment and regimen